=== PATIENT | female | born 1995 | race Two or more races ===

== ENCOUNTER 2018-02-25 21:30 | Emergency (ER) | payer MEDICAID, OTHER ==
[~2018-02-25] VITALS: Ht 160 cm; Wt 74.8 kg
[2018-02-25] MEDS ORDERED: IV NORMAL SALINE 1000 ML BAG IV ONE (22:45)
[2018-02-25] MEDS ORDERED: KETOROLAC TROMETHAMINE 15 MG INJ IV ONE (22:45)
[2018-02-25] MEDS ORDERED: KETOROLAC TROMETHAMINE 15 MG INJ ONE (23:01)
[2018-02-25 23:09] LABS: BASOPHILS % (AUTO) 0.5 % (0.0-2.0); EOSINOPHILS % (AUTO) 0.5 % (0.0-7.0); HEMATOCRIT 41.3 % (31.2-41.9); HEMOGLOBIN 14.1 g/dL (10.9-14.3); LYMPHOCYTES # (AUTO) 1.8 K/uL (20.0-40.0); LYMPHOCYTES % (AUTO) 19.4 % (20.5-51.5); MEAN CORPUSCULAR HEMOGLOBIN 29.8 uug (24.7-32.8); MEAN CORPUSCULAR HGB CONC 34 g/dL (32.3-35.6); MEAN CORPUSCULAR VOLUME 87.1 fL (75.5-95.3); MONOCYTES # (AUTO) 0.7 K/uL (2.0-10.0); MONOCYTES % (AUTO) 7.3 % (0.0-11.0); NEUTROPHILS # (AUTO) 6.7 K/uL (1.8-8.9); NEUTROPHILS % (AUTO) 72.3 % (38.5-71.5); PLATELET COUNT (AUTO) 237 K/uL (179-408); RED BLOOD CELL COUNT(AUTO) 4.74 MIL/uL (3.63-4.92); WHITE BLOOD COUNT (AUTO) 9.3 K/uL (3.8-11.8)
--- NOTE | 2018-02-25 23:16 | NUR ---
US TECH AT BEDSIDE. PT RESTING QUIETLY ON SLEEVE BASTER. BED IS IN LOWEST POSITION W/ SIDERAILS UP. NO SIGNS OF DISTRESS WITNESSED AT THIS TIME.
[2018-02-25 23:19] LABS: ALANINE AMINOTRANSFERASE 25 U/L (14-59); ALKALINE PHOSPHATASE 73 U/L (50-136); ASPARTATE AMINOTRANSFERASE 17 U/L (15-37); BILIRUBIN,DIRECT < 0.1 mg/dL (0.0-0.2); BILIRUBIN,TOTAL 0.2 mg/dL (0.2-1.0); CARBON DIOXIDE 27 mmol/L (21-32); CHLORIDE 101 mmol/L (98-107); CREATININE 0.8 mg/dL (0.6-1.3); GLUCOSE 93 mg/dL (74-106); LIPASE 113 U/L (73-393); POTASSIUM 3.9 mmol/L (3.5-5.1); TOTAL PROTEIN, SERUM 7.6 g/dL (6.4-8.2); UREA NITROGEN, BLOOD 10 mg/dL (7-18)
--- NOTE | 2018-02-25 23:26 | NUR ---
US TECH LEAVES BEDSIDE.
--- NOTE | 2018-02-26 00:05 | NUR ---
PT ABLE TO AMBULATE UNASSISTED TO RESTROOM WITH A STEADY GAIT.
[2018-02-26 00:40] LABS: *BILIRUBIN,URIN NEGATIVE (NEGATIVE); *BLOOD, URINE NEGATIVE (NEGATIVE); *CLARITY,URINE CLEAR (CLEAR); *COLOR,URINE YELLOW (YELLOW); *KETONES,URINE TRACE (NEGATIVE); *PROTEIN,URINE NEGATIVE (NEGATIVE); *UROBILINOGEN,URINE 0.2 E.U./dl (NORMAL); LEUKOCYTE ESTERASE ,URINE NEGATIVE (NEGATIVE); NITRITE, URINE NEGATIVE (NEGATIVE); UGLUCOSE NEGATIVE (NEGATIVE)
[2018-02-26 00:50] LABS: BACTERIA,URINE FEW /HPF (NONE SEEN); RBC,URINE 0-3 /HPF (0-3); SQUAMOUS EPITHELIAL CELL,UR MODERATE /HPF (NONE SEEN)
[2018-02-26 00:51] LABS: *URINE HCG, QUAL NEGATIVE (NEGATIVE)
[2018-02-26] MEDS ORDERED: NORMAL SALINE FLUSH 10 ML DISP.SYRIN ONE (01:07)
[2018-02-26] MEDS ORDERED: IOHEXOL 300MG/ML 100 ML INFUS..BTL ONE (01:07)
[2018-02-26] MEDS ORDERED: SWABABLE VALVE TRANSFER SET EA MC ONE (01:07)
--- NOTE | 2018-02-26 02:10 | NUR ---
PT IN BED RESTING QUIETLY. PT IS EASILY ARROUSABLE TO VOICE. PT IS AAOX4. PT IS CALM AND COOPERATIVE. PT STATES THAT SHE IS "BEGINNING TO FEEL BETTER." NO SIGNS OF DISTRESSED AT THIS TIME.
--- NOTE | 2018-02-26 03:50 | NUR ---
Patient discharged to home in stable conditon. Patient reported being free of pain prior to discharge. Peripheral IV were removed. Written and verbal after care instructions given. Patient verbalizes understanding of instructions. Patient able to ambulate unassisted with a steady gait. Patient left with all personal belongings.
[2018-02-26 04:17] VITALS: BP 127/70
== END 2018-02-26 03:50 | disposition home or self-care (01) ==
LOC: ER 21:33
DX: R10.33 Periumbilical pain (principal); I88.0 Nonspecific mesenteric lymphadenitis; F12.10 Cannabis abuse, uncomplicated
CPT/HCPCS: 36415; 71275; 72191; 74175; 76700; 80048; 80076; 81001; 83690; 84484; 84703; 85025; 85379; 85730; 93005; 96374; 99285; A4663; J1885; J3490; J7030; Q9967; 70030-TC

== ENCOUNTER 2020-10-14 03:33 | Emergency (ER) | payer MEDICAID ==
[~2020-10-14] VITALS: Ht 157.5 cm; Wt 77.1 kg
[2020-10-14] MEDS ORDERED: IBUPROFEN 600 MG TABLET PO ONE (03:45)
--- NOTE | 2020-10-14 03:50 | NUR ---
Pt receiving x-ray at this time.
[2020-10-14] MEDS ORDERED: IBUPROFEN 600 MG TABLET ONE (03:53)
[2020-10-14] MEDS ORDERED: IBUP-1953 PO (03:55)
--- NOTE | 2020-10-14 04:02 | NUR ---
Pt refused last set of vitals in cool to go.
== END 2020-10-14 04:02 | disposition home or self-care (01) ==
LOC: ER 03:45
DX: M25.512 Pain in left shoulder (principal); M62.830 Muscle spasm of back
CPT/HCPCS: 73030; A4663

== ENCOUNTER 2021-01-22 08:36 | Emergency (ER) | payer MEDICAID ==
[~2021-01-22] VITALS: Ht 160 cm; Wt 72.6 kg
[~2021-01-22 08:36] MED LIST: IBUP-1953 PO
--- NOTE | 2021-01-22 11:14 | NUR ---
DR. SEGAL TALKING TO DR. GUZMAN FOR ORTHO CONSULT OVER THE PHONE
--- NOTE | 2021-01-22 11:46 | NUR ---
Patient discharged to home in stable condition. Written and verbal after care instructions given. Patient verbalizes understanding of instructions. Stressed follow up or return to ER for worsening s/s.
== END 2021-01-22 11:47 | disposition home or self-care (01) ==
LOC: ER 08:36
DX: S69.92XA Unspecified injury of left wrist, hand and finger(s), initial encounter (principal); M24.9 Joint derangement, unspecified; V48.4XXA Person boarding or alighting a car injured in noncollision transport accident, initial encounter; Y92.89 Other specified places as the place of occurrence of the external cause; Z80.3 Family history of malignant neoplasm of breast
CPT/HCPCS: 73140; A4663

== ENCOUNTER 2022-09-24 11:34 | Emergency (ER) | payer MEDICAID ==
[~2022-09-24] VITALS: Ht 160 cm; Wt 72.6 kg
[2022-09-24] MEDS ORDERED: AMOX875T2 PO (12:18)
--- NOTE | 2022-09-24 12:44 | NUR ---
PT WAS EVALUATED BY DR VILLALOBOS. PT WAS D/C'd TO HOME. D/C INSTRUCTIONS GIVEN TO THE PT BY DR VILLALOBOS.
[2022-09-24 12:46] VITALS: BP 136/67
[2022-09-25] MEDS ORDERED: AMOX875T2 PO (12:52)
== END 2022-09-24 12:46 | disposition home or self-care (01) ==
LOC: ER 11:34
DX: H66.92 Otitis media, unspecified, left ear (principal); H73.92 Unspecified disorder of tympanic membrane, left ear; Z79.2 Long term (current) use of antibiotics; Z79.1 Long term (current) use of non-steroidal anti-inflammatories (NSAID)
CPT/HCPCS: A4663

== ENCOUNTER 2023-02-11 15:07 | Emergency (ER) | payer MEDICAID ==
[~2023-02-11] VITALS: Ht 160 cm; Wt 72.6 kg
[~2023-02-11 15:07] MED LIST changes: +AMOX875T2 PO
[2023-02-11 15:57] LABS: *BILIRUBIN,URIN NEGATIVE (NEGATIVE); *BLOOD, URINE NEGATIVE (NEGATIVE); *COLOR,URINE YELLOW (YELLOW); *KETONES,URINE NEGATIVE (NEGATIVE); *PROTEIN,URINE NEGATIVE (NEGATIVE); *UROBILINOGEN,URINE 0.2 E.U./dl (NORMAL); LEUKOCYTE ESTERASE ,URINE 1+ (NEGATIVE); NITRITE, URINE NEGATIVE (NEGATIVE); UGLUCOSE NEGATIVE (NEGATIVE)
[2023-02-11 15:58] LABS: *CLARITY,URINE HAZY (CLEAR)
[2023-02-11 16:02] LABS: BILIRUBIN,DIRECT 0.1 mg/dL (0.0-0.2); BILIRUBIN,TOTAL 0.4 mg/dL (0.2-1.0); CALCIUM 9.3 mg/dL (8.5-10.1); CREATININE 0.6 mg/dL (0.6-1.3); POTASSIUM 4.5 mmol/L (3.5-5.1); TOTAL PROTEIN, SERUM 7.4 g/dL (6.4-8.2)
[2023-02-11 16:06] LABS: *URINE HCG, QUAL NEGATIVE (NEGATIVE); BACTERIA,URINE FEW /HPF (NONE SEEN); RBC,URINE 0-3 /HPF (0-3); SQUAMOUS EPITHELIAL CELL,UR FEW /HPF (NONE SEEN)
[2023-02-11 17:15] LABS: BASOPHILS % (AUTO) 0.4 % (0.0-2.0); EOSINOPHILS # (AUTO) 0.1 K/uL (0.0-0.7); EOSINOPHILS % (AUTO) 0.8 % (0.0-7.0); HEMATOCRIT 39.4 % (31.2-41.9); HEMOGLOBIN 13.1 g/dL (10.9-14.3); LYMPHOCYTES # (AUTO) 2.1 K/uL (0.8-4.8); LYMPHOCYTES % (AUTO) 28.9 % (20.5-51.5); MEAN CORPUSCULAR HEMOGLOBIN 28.9 uug (24.7-32.8); MEAN CORPUSCULAR HGB CONC 33 g/dL (32.3-35.6); MEAN CORPUSCULAR VOLUME 86.9 fL (75.5-95.3); MONOCYTES # (AUTO) 0.5 K/uL (0.1-1.30); MONOCYTES % (AUTO) 6.3 % (0.0-11.0); NEUTROPHILS # (AUTO) 4.6 K/uL (1.8-8.9); NEUTROPHILS % (AUTO) 63.6 % (38.5-71.5); PLATELET COUNT (AUTO) 248 K/uL (179-408); RED BLOOD CELL COUNT(AUTO) 4.53 MIL/uL (3.63-4.92); RED CELL DISTRIBUTION WIDTH 12.1 % (12.3-17.7); WHITE BLOOD COUNT (AUTO) 7.3 K/uL (3.8-11.8)
[2023-02-11 17:35] LABS: DIFFERENTIAL COMMENT 1
[2023-02-11] MEDS ORDERED: CEPH500T PO (17:57)
[2023-02-11 18:05] VITALS: BP 117/70; TEMP 98.4; O2SAT 99
== END 2023-02-11 18:12 | disposition home or self-care (01) ==
LOC: ER 15:07
DX: N39.0 Urinary tract infection, site not specified (principal); Z79.1 Long term (current) use of non-steroidal anti-inflammatories (NSAID); Z79.2 Long term (current) use of antibiotics; Z79.899 Other long term (current) drug therapy
CPT/HCPCS: 36415; 83690; 84703; 85025; A4663

== ENCOUNTER 2024-02-01 13:51 | Emergency (ER) | payer MEDICAID ==
[~2024-02-01] VITALS: Ht 160 cm; Wt 77.1 kg
[~2024-02-01 13:51] MED LIST changes: +CEPH500T PO
[2024-02-01 16:19] LABS: *BLOOD, URINE NEGATIVE (NEGATIVE); *CLARITY,URINE CLEAR (CLEAR); *COLOR,URINE YELLOW (YELLOW); *KETONES,URINE TRACE (NEGATIVE); *PROTEIN,URINE NEGATIVE (NEGATIVE); *UROBILINOGEN,URINE 0.2 E.U./dl (NORMAL); LEUKOCYTE ESTERASE ,URINE NEGATIVE (NEGATIVE); NITRITE, URINE NEGATIVE (NEGATIVE); PH,URINE 5.5 (5.0-8.0); UGLUCOSE NEGATIVE (NEGATIVE)
[2024-02-01 16:25] LABS: *BILIRUBIN,URIN 1+ (NEGATIVE)
[2024-02-01 16:27] LABS: *URINE HCG, QUAL NEGATIVE (NEGATIVE)
[2024-02-01 16:45] LABS: RBC,URINE 0-3 /HPF (0-3); WBC,URINE 0-3 /HPF (0-3)
[2024-02-01 16:57] LABS: BASOPHILS % (AUTO) 0.2 % (0.0-2.0); EOSINOPHILS # (AUTO) 0.1 K/uL (0.0-0.7); EOSINOPHILS % (AUTO) 0.7 % (0.0-7.0); HEMATOCRIT 40.7 % (31.2-41.9); HEMOGLOBIN 13.4 g/dL (10.9-14.3); LYMPHOCYTES # (AUTO) 2.5 K/uL (0.8-4.8); LYMPHOCYTES % (AUTO) 34.4 % (20.5-51.5); MEAN CORPUSCULAR HEMOGLOBIN 28.6 uug (24.7-32.8); MEAN CORPUSCULAR HGB CONC 33 g/dL (32.3-35.6); MEAN CORPUSCULAR VOLUME 86.5 fL (75.5-95.3); MONOCYTES # (AUTO) 0.6 K/uL (0.1-1.30); MONOCYTES % (AUTO) 7.9 % (0.0-11.0); NEUTROPHILS # (AUTO) 4.1 K/uL (1.8-8.9); NEUTROPHILS % (AUTO) 56.8 % (38.5-71.5); PLATELET COUNT (AUTO) 241 K/uL (179-408); RED CELL DISTRIBUTION WIDTH 11.8 % (12.3-17.7); WHITE BLOOD COUNT (AUTO) 7.3 K/uL (3.8-11.8)
[2024-02-01 16:59] LABS: CALCIUM 8.5 mg/dL (8.5-10.1); CARBON DIOXIDE 28 mmol/L (21-32); CHLORIDE 104 mmol/L (98-107); CREATININE 0.6 mg/dL (0.6-1.3); GLUCOSE 95 mg/dL (74-106); POTASSIUM 3.4 mmol/L (3.5-5.1); SODIUM SERUM 140 mmol/L (136-145); UREA NITROGEN, BLOOD 12 mg/dL (7-18)
[2024-02-01 17:05] LABS: ALANINE AMINOTRANSFERASE 14 U/L (14-59); ALBUMIN 4.1 g/dL (3.4-5.0); ALKALINE PHOSPHATASE 60 U/L (50-136); ASPARTATE AMINOTRANSFERASE 9 U/L (15-37); BILIRUBIN,DIRECT 0.1 mg/dL (0.0-0.2); BILIRUBIN,TOTAL 0.5 mg/dL (0.2-1.0); TOTAL PROTEIN, SERUM 7.5 g/dL (6.4-8.2)
[2024-02-01 17:20] LABS: PREGNANCY TEST SERUM QUAN < 1 miul/L (0-6)
[2024-02-01] MEDS ORDERED: ACET1TAB23 PO (17:59)
[2024-02-01] MEDS ORDERED: MAGNESIUM HYDROXIDE 30 ML LIQUID UDC ONE (18:03)
[2024-02-01] MEDS: MAGNESIUM HYDROXIDE 30 ML LIQUID UDC PO ONE (18:10)
[2024-02-01 18:11] VITALS: BP 131/78; O2SAT 98
== END 2024-02-01 18:11 | disposition home or self-care (01) ==
LOC: ER 13:51
DX: K59.00 Constipation, unspecified (principal); N83.209 Unspecified ovarian cyst, unspecified side; R10.2 Pelvic and perineal pain; R14.0 Abdominal distension (gaseous); Z79.1 Long term (current) use of non-steroidal anti-inflammatories (NSAID); Z79.899 Other long term (current) drug therapy
CPT/HCPCS: 36415; 74021; 76856; 84703; 85025; A4606; A4663

== ENCOUNTER 2024-08-23 11:26 | Emergency (ER) | payer MEDICAID ==
[~2024-08-23] VITALS: Ht 160 cm; Wt 77.1 kg
[~2024-08-23 11:26] MED LIST changes: +ACET1TAB23 PO
[2024-08-23 12:04] LABS: BASOPHILS % (AUTO) 0.2 % (0.0-2.0); EOSINOPHILS # (AUTO) 0.2 K/uL (0.0-0.7); HEMATOCRIT 42.2 % (31.2-41.9); HEMOGLOBIN 13.9 g/dL (10.9-14.3); LYMPHOCYTES # (AUTO) 1.7 K/uL (0.8-4.8); LYMPHOCYTES % (AUTO) 21.8 % (20.5-51.5); MEAN CORPUSCULAR HEMOGLOBIN 28.6 uug (24.7-32.8); MEAN CORPUSCULAR HGB CONC 33 g/dL (32.3-35.6); MEAN CORPUSCULAR VOLUME 86.9 fL (75.5-95.3); MONOCYTES # (AUTO) 0.6 K/uL (0.1-1.30); MONOCYTES % (AUTO) 7.7 % (0.0-11.0); NEUTROPHILS # (AUTO) 5.4 K/uL (1.8-8.9); NEUTROPHILS % (AUTO) 68.3 % (38.5-71.5); PLATELET COUNT (AUTO) 260 K/uL (179-408); RED BLOOD CELL COUNT(AUTO) 4.85 MIL/uL (3.63-4.92); RED CELL DISTRIBUTION WIDTH 12.4 % (12.3-17.7); WHITE BLOOD COUNT (AUTO) 7.9 K/uL (3.8-11.8)
[2024-08-23 12:06] LABS: *BILIRUBIN,URIN NEGATIVE (NEGATIVE); *BLOOD, URINE NEGATIVE (NEGATIVE); *CLARITY,URINE CLEAR (CLEAR); *COLOR,URINE YELLOW (YELLOW); *KETONES,URINE NEGATIVE (NEGATIVE); *PROTEIN,URINE NEGATIVE (NEGATIVE); *UROBILINOGEN,URINE 0.2 E.U./dl (NORMAL); LEUKOCYTE ESTERASE ,URINE NEGATIVE (NEGATIVE); NITRITE, URINE NEGATIVE (NEGATIVE); UGLUCOSE NEGATIVE (NEGATIVE)
[2024-08-23 12:08] LABS: *URINE HCG, QUAL NEGATIVE (NEGATIVE)
[2024-08-23 12:24] LABS: ALANINE AMINOTRANSFERASE 20 U/L (14-59); ALBUMIN 4.2 g/dL (3.4-5.0); ALKALINE PHOSPHATASE 66 U/L (50-136); ASPARTATE AMINOTRANSFERASE 21 U/L (15-37); BILIRUBIN,DIRECT 0.2 mg/dL (0.0-0.2); BILIRUBIN,TOTAL 0.5 mg/dL (0.2-1.0); CALCIUM 9.4 mg/dL (8.5-10.1); CARBON DIOXIDE 30 mmol/L (21-32); CHLORIDE 103 mmol/L (98-107); CREATININE 0.5 mg/dL (0.6-1.3); GLUCOSE 61 mg/dL (74-106); LIPASE 20 U/L (16-77); POTASSIUM 3.8 mmol/L (3.5-5.1); SODIUM SERUM 141 mmol/L (136-145); TOTAL PROTEIN, SERUM 7.8 g/dL (6.4-8.2); UREA NITROGEN, BLOOD 8 mg/dL (7-18)
[2024-08-23 12:29] LABS: DIFFERENTIAL COMMENT 1
[2024-08-23] MEDS ORDERED: KETOROLAC TROMETHAMINE 15 MG INJ ONE (12:44)
[2024-08-23] MEDS ORDERED: LIDOCAINE 5% PATCH TD ONE (12:44)
[2024-08-23] MEDS: KETOROLAC TROMETHAMINE 15 MG INJ IM ONE (12:53)
[2024-08-23] MEDS: IV NORMAL SALINE 1000 ML BAG IV ONE (12:53)
[2024-08-23] MEDS ORDERED: IBUP-1955 PO (12:53)
[2024-08-23] MEDS: LIDOCAINE 5% PATCH TD ONE (12:53)
[2024-08-23] MEDS ORDERED: PHEN-704 PO (12:53)
[2024-08-23 13:44] VITALS: BP 131/68; O2SAT 99
== END 2024-08-23 13:38 | disposition home or self-care (01) ==
LOC: ER 11:26
DX: R10.32 Left lower quadrant pain (principal); R35.0 Frequency of micturition; R30.0 Dysuria; F12.90 Cannabis use, unspecified, uncomplicated
CPT/HCPCS: 99283; 80076; 80048; 81003; 84703; 83690; 85025; 36415; 96372; J1885; J7040; A4606; A4663

== ENCOUNTER 2024-09-12 18:10 | Emergency (ER) | payer OTHER, MEDICAID ==
[~2024-09-12] VITALS: Ht 160 cm; Wt 77.1 kg
[~2024-09-12 18:10] MED LIST changes: +IBUP-1955 PO; +PHEN-704 PO
[2024-09-12 18:28] VITALS: O2SAT 99
[2024-09-13] MEDS ORDERED: LIDO30AD10 TP (09:51)
[2024-09-13] MEDS ORDERED: CYCL5TAB PO (09:51)
== END 2024-09-12 21:00 | disposition left against medical advice (07) ==
LOC: ER 18:10
DX: M54.9 Dorsalgia, unspecified (principal); Z53.21 Procedure and treatment not carried out due to patient leaving prior to being seen by health care provider; V89.2XXA Person injured in unspecified motor-vehicle accident, traffic, initial encounter; Y93.89 Activity, other specified; Y92.89 Other specified places as the place of occurrence of the external cause; Y99.8 Other external cause status
CPT/HCPCS: A4606; A4663

== ENCOUNTER 2024-09-13 09:18 | Emergency (ER) | payer OTHER, MEDICAID ==
[~2024-09-13] VITALS: Ht 160 cm; Wt 77.1 kg
[2024-09-13] MEDS ORDERED: KETOROLAC TROMETHAMINE 15 MG INJ ONE (09:48)
[2024-09-13] MEDS ORDERED: LIDO30AD10 TP (09:51)
[2024-09-13] MEDS ORDERED: CYCL5TAB PO (09:51)
[2024-09-13] MEDS: KETOROLAC TROMETHAMINE 15 MG INJ IM ONE (09:51)
[2024-09-13 10:08] VITALS: BP 133/68; O2SAT 99
== END 2024-09-13 10:09 | disposition home or self-care (01) ==
LOC: ER 09:18
DX: M54.50 Low back pain, unspecified (principal); F12.90 Cannabis use, unspecified, uncomplicated; V43.62XA Car passenger injured in collision with other type car in traffic accident, initial encounter; Y93.89 Activity, other specified; Y92.488 Other paved roadways as the place of occurrence of the external cause; Y99.8 Other external cause status
CPT/HCPCS: 99283; 96372; J1885; A4606; A4663